=== PATIENT | male | born 1980 | race Caucasian/White ===

== ENCOUNTER → 2016-03-24 | Outpatient (CLI) | payer BC ==
[~2016-03-24] MED LIST: DIAZ-165 PO; MELO15TA4 PO
--- NOTE | 2016-03-24 14:20 | DIAGNOSTIC IMAGING REPORT ---
ULTRASOUND TESTES AND SCROTUM CLINICAL HISTORY: Right testicular pain. COMPARISON STUDY: No priors. TECHNIQUE: Real-time, grayscale, and color Doppler sonography of the testes and scrotum is performed. Images are reviewed in the transverse and longitudinal planes. FINDINGS: The testes are normal in size and homogeneous in echotexture. The right testis measures 4.4 x 2.3 x 2.8 cm and the left testis measures 4.5 x 2.1 x 2.6 cm. No intratesticular mass is seen. Testicular blood flow is normal and symmetric. Normal Doppler waveforms are identified in both testes. The right epididymis appears hyperemic as compared to the left. The right epididymal head measures 1.1 cm in length and the left epididymal head measures 1.0 cm in length. A small left-sided varicocele measures up to 3 mm. No hydrocele is seen. IMPRESSION: 1. Unremarkable sonographic appearance of the testes. 2. The right epididymis appears hyperemic as compared to the left suggesting epididymitis. Clinical correlation will be required. 3. Small left-sided varicocele. Electronically signed by: Jorge Jacobs M.D. 03/24/2016 2:18 PM Dictated Date/Time: 03/24/2016 2:16 PM
== END | disposition home or self-care (01) ==
LOC: C.ULTR 13:43
PROVIDERS: ATTEND Urology
DX: N50.819 Testicular pain, unspecified (principal); I86.1 Scrotal varices

== ENCOUNTER → 2016-05-04 | Outpatient (CLI) | payer BC ==
[2016-05-04 20:18] LABS: INFLUENZA B PCR Neg for Influ B (NEG)
[2016-05-04 20:19] LABS: INFLUENZA A PCR POS for Influ A (NEG)
== END | disposition home or self-care (01) ==
LOC: C.LABBC 14:19
PROVIDERS: ATTEND Family Medicine
DX: R68.89 Other general symptoms and signs (principal); J02.9 Acute pharyngitis, unspecified

== ENCOUNTER 2016-09-25 11:23 | Emergency (ER) | payer BC ==
[~2016-09-25] VITALS: Ht 188 cm; Wt 95.0 kg
[2016-09-25 11:25] VITALS: TEMP 36.9; Ht 188 cm; Wt 95.0 kg
[2016-09-25] MEDS ORDERED: KETOROLAC TROMETHAMINE 60 MG/2 ML VIAL IM STA (11:49)
[2016-09-25] MEDS ORDERED: DIAZEPAM INJ 5 MG/ML 2 ML CARP IM STA (11:49)
--- NOTE | 2016-09-25 12:01 | EMERGENCY ROOM VISIT NOTE ---
ED Visit Note First contact with patient: 11:35 CHIEF COMPLAINT: Low back pain HISTORY OF PRESENT ILLNESS: This 36 year old male patient presents to the emergency department complaining of pain in the low back which began 2 weeks ago. Patient states he started getting low back pain approximately 2 years ago after pulling a muscle in the gym. Since that time he has had periods where the pain will flare up for a couple of days, he usually rests and takes ibuprofen and it gets better on its own. This time the pain has been lasting much longer and is not responding to the normal treatments. The pain was gradual in onset, is now constant and worse with movement. The patient notes the pain as spasming, sharp and achy and a 8/10. The patient has taken Tylenol and ibuprofen with minimal relief of the pain. The patient denies any loss of control of their bowel or bladder functions. There has been no leg numbness or weakness, and no change in sensation. No nausea or vomiting or abdominal pain. No chest pain or shortness of breath. The patient has not had any significant prior back injuries. No dysuria or increased urinary frequency. REVIEW OF SYSTEMS: A review of systems was performed with positives and pertinent negatives listed in the history of present illness. All other systems were reviewed and are negative. ALLERGIES: See chart MEDICATIONS: See chart PMH: See chart SOCIAL HISTORY: See chart PHYSICAL EXAM: VITALS: Vitals are noted on the nurse's note and reviewed by myself. Vital signs stable. GENERAL: Pleasant and cooperative, in no acute distress, non-diaphoretic, well- developed well-nourished. SKIN: The skin was without rashes, erythema, edema, or bruising. Capillary refill less than 2 seconds. NECK: Supple without nuchal rigidity. No cervical spine tenderness. No paraspinous muscle tenderness. HEART: Regular rate and rhythm without murmurs gallops or rubs. LUNGS: Clear to auscultation bilaterally without wheezes, rales or rhonchi. ABDOMEN: Positive bowel sounds x 4. Normal tympanic percussion. Soft, nontender, without masses or organomegaly. Martínez sign negative. MUSCULOSKELETAL: No muscle atrophy, erythema, or edema noted of the back. There is no tenderness over the lumbar spinous processes. There is mild tenderness over the paraspinous muscles on the right lumbar region. There is no tenderness over the thoracic spine or paraspinous muscles. There are moderate right-sided muscle spasms present. The patient is slow to move around with maximum tenderness with bending and rotating, twisting motions. Negative straight leg raise test. NEURO: Patient was alert and oriented to person place and time. Normal sensation to light and sharp touch. Deep tendon reflexes 2+ in the lower extremities. Dorsalis pedis pulse 2+ bilaterally. Strength 5/5 and equal in the bilateral lower extremities. EMERGENCY DEPARTMENT COURSE: I examined the patient. History and exam consistent with muscular strain/sprain, there has been no trauma to indicate imaging at this time. Patient was treated with IM Toradol and Valium, with good improvement in his pain. Prescriptions for Valium and Mobic were sent to the pharmacy. Patient was instructed to follow closely with the PCP and encouraged to seek physical therapy for his back pain. Patient was discharged home in stable condition and ambulatory. Current/Historical Medications Scheduled Diazepam (Valium), 10 MG PO TID Meloxicam (Mobic), 15 MG PO DAILY Allergies Coded Allergies: No Known Allergies (Unverified , 04/10/15) Vital Signs Date Time Temp Pulse Resp B/P (MAP) Pulse Ox O2 Delivery O2 Flow Rate FiO2 09/25/16 14:10 87 20 118/77 100 09/25/16 11:25 36.9 82 16 138/84 99 Room Air Medications Administered Medications (Trade) Dose Ordered Sig/Stephen Route Start Time Stop Time Status Last Admin Dose Admin Ketorolac Tromethamine (Toradol Inj) 60 mg NOW STAT IM 09/25/16 11:49 09/25/16 11:51 DC 09/25/16 12:09 60 MG Diazepam (Valium Inj) 10 mg NOW STAT IM 09/25/16 11:49 09/25/16 11:51 DC 09/25/16 12:09 10 MG Departure Information Impression Primary Impression: Strain of lumbar region Dispostion Home / Self-Care Condition GOOD Prescriptions Meloxicam (MOBIC) 15 Mg Tab 15 MG PO DAILY for 14 Days, #14 TAB Prov: Shannan Rodríguez CRNP 09/25/16 Diazepam (Valium) 5 Mg Tab 10 MG PO TID for Muscle Spasms for 3 Days, #10 TAB Prov: Shannan Rodríguez CRNP 09/25/16 Referrals Milena, Constantin D.,M.D. (PCP) Patient Instructions ED Exercises Lumbar Muscles, My [facility] Additional Instructions Take it easy for the next few days, no strenuous activity, heavy lifting, or bending/twisting motions, to allow your back to rest. Alternate heat and ice for comfort. After heat, you may do gentle stretching and massage to the low back. Mobic as prescribed once a day for the next two weeks to treat your pain and inflammation in your back. Do not take other NSAIDs while you are taking this medication. Valium muscle relaxer as prescribed, as needed for muscle tightness and spasms. This may make you drowsy. Do not drive or drink alcohol while taking. Follow up with your PCP in the next few days for further management. You may benefit from physical therapy. Please return to the ER if any problems with bowel or bladder function, numbness in your groin, high fevers, severe abdominal pain or worsening back pain, or if loss of feeling/movement of legs. Problem Qualifiers Primary Impression: Strain of lumbar region Encounter type: initial encounter Qualified Codes: S39.012A - Strain of muscle, fascia and tendon of lower back, initial encounter
[2016-09-25] MEDS ORDERED: DIAZ-165 PO (12:30)
[2016-09-25] MEDS ORDERED: MELO15TA4 PO (12:30)
[2016-09-25 14:10] VITALS: BP 118/77; PULSE 87; O2SAT 100
== END 2016-09-25 14:11 | disposition home or self-care (01) ==
LOC: C.EDB 11:24 → C.EDD 14:11
DX: S39.012A Strain of muscle, fascia and tendon of lower back, initial encounter (principal); X58.XXXA Exposure to other specified factors, initial encounter